=== PATIENT | male | born 1945 | race Asian ===

== ENCOUNTER 2017-03-27 21:41 | Emergency (ER) | payer OTHER ==
[2017-03-28 00:45] VITALS: BP 138/87
== END 2017-03-28 00:45 | disposition home or self-care (01) ==
LOC: ED 21:41
DX: S91.114A Laceration without foreign body of right lesser toe(s) without damage to nail, initial encounter (principal); I25.10 Atherosclerotic heart disease of native coronary artery without angina pectoris; I10 Essential (primary) hypertension; Z98.890 Other specified postprocedural states; W22.8XXA Striking against or struck by other objects, initial encounter; Y99.8 Other external cause status; Y93.89 Activity, other specified; Y92.89 Other specified places as the place of occurrence of the external cause
CPT/HCPCS: 90715